=== PATIENT | female | born 1985 | race African-American/Black ===

== ENCOUNTER 2019-04-18 03:29 | Emergency (ER) | payer OTHER ==
[~2019-04-18] VITALS: Ht 167.6 cm; Wt 77.0 kg
[2019-04-18 04:10] VITALS: BP 111/85
== END 2019-04-18 05:17 | disposition home or self-care (01) ==
LOC: ER 03:29
DX: Z00.00 Encounter for general adult medical examination without abnormal findings (principal); J45.909 Unspecified asthma, uncomplicated; R07.9 Chest pain, unspecified
CPT/HCPCS: 99283

== ENCOUNTER 2019-09-30 05:42 | Emergency (ER) | payer MEDICAID, OTHER ==
[~2019-09-30] VITALS: Ht 167.6 cm; Wt 71.0 kg
[2019-09-30] MEDS ORDERED: KETOROLAC 30MG/ML VIAL IV STA (06:32)
[2019-09-30] MEDS ORDERED: VANCOMYCIN 1 G PREMIX 200 ML IV SCH (06:45)
[2019-09-30] MEDS ORDERED: SODIUM CHLORIDE 0.9% 1000ML BAG (SEPSIS BOLUS) IV ONE (06:45)
[2019-09-30] MEDS ORDERED: DEXAMETHASONE 10 MG/ML VIAL IV ONE (06:45)
[2019-09-30] MEDS ORDERED: CLINDAMYCIN 600 MG in DEXTROSE 5% WATER 50 ML IV ONE (06:45)
[2019-09-30 07:07] LABS: CLARITY URINE CLOUDY (CLEAR); COLOR URINE DARK YELLOW (YELLOW); KETONES URINE 3+ (NEGATIVE); LEUKOCYTE ESTERASE URINE TRACE (NEGATIVE); NITRITE URINE NEGATIVE (NEGATIVE); OCCULT BLOOD URINE 2+ (NEGATIVE); PH URINE 5.5 (4.5-8.0); PROTEIN URINE 3+ (NEGATIVE); SPECIFIC GRAVITY URINE 1.039 (1.005-1.030)
[2019-09-30 07:25] LABS: HEMOGLOBIN. 14.4 g/dL (12.0-16.0); MEAN CORPUSCULAR HEMOGLOBIN 32.3 pg (28.0-32.0); MEAN CORPUSCULAR VOLUME 96.3 fL (81.0-99.0); PLATELET 241 x1000/uL (130-400); RED BLOOD CELL COUNT 4.47 mill/uL (4.2-5.4); RED CELL DISTRIBUTION WIDTH 13.8 % (11.6-14.6)
[2019-09-30 07:34] LABS: CHLORIDE 102 mEq/L (98-107)
[2019-09-30 07:48] LABS: PLATELET ESTIMATE NORMAL
[2019-09-30 07:50] LABS: INR 1.1; PROTHROMBIN TIME 11.7 sec (9.6-11.0)
[2019-09-30 08:14] LABS: HCG SCREEN NEGATIVE; MONOTEST NEGATIVE (NEGATIVE)
[2019-09-30] MEDS ORDERED: DEXT 5%/0.45% NACL KCL 20MEQ/L 1,000 ML IV ONE (10:37)
[2019-09-30] MEDS ORDERED: IOHEXOL-300 100 ML BOTTLE ONE (11:17)
[2019-09-30 15:45] VITALS: BP 111/70
[2019-09-30] MEDS ORDERED: TETRACAINE/BENZOCAINE/BUTAMBEN 20 GM SPRAY MM ONE (15:45)
[2019-09-30] MEDS ORDERED: LIDOCAINE 1%/EPI 1:100,000 10 ML VIAL IJ ONE (15:45)
[2019-09-30] MEDS ORDERED: LIDOCAINE HCL/EPINEPHRINE 1%-EPI 1:100,000 20 ML VIAL ONE (15:46)
== END 2019-09-30 17:40 | disposition home or self-care (01) ==
LOC: ER 05:42
DX: A41.9 Sepsis, unspecified organism (principal); J36 Peritonsillar abscess; E86.0 Dehydration; H92.01 Otalgia, right ear
CPT/HCPCS: 36415; 70491; 71045; 80053; 81003; 81025; 83605; 84145; 84484; 84703; 85025; 85610; 86308; 87040; 87086; 87430; 93005; 99291; J1100; J1885; J3490; J7030; J7060; Q9967

== ENCOUNTER 2019-11-29 23:48 | Emergency (ER) | payer MEDICAID ==
[~2019-11-29] VITALS: Ht 167.6 cm; Wt 75.0 kg
[2019-11-30 02:07] LABS: BASOPHILS % 1.3 % (0.0-2.0); EOSINOPHILS % 3.5 % (0.0-5.0); HEMATOCRIT. 38.9 % (36.0-48.0); LYMPHOCYTES % 45.6 % (20.0-50.0); MEAN CORPUSCULAR HEMOGLOBIN 33.3 pg (28.0-32.0); MEAN CORPUSCULAR VOLUME 99.2 fL (81.0-99.0); MEAN PLATELET VOLUME 8.8 fl (7.4-10.4); MONOCYTES % 9.6 % (2.0-8.0); PLATELET 169 x1000/uL (130-400); RED BLOOD CELL COUNT 3.92 mill/uL (4.2-5.4); RED CELL DISTRIBUTION WIDTH 14.5 % (11.6-14.6)
[2019-11-30 02:14] LABS: CHLORIDE 109 mEq/L (98-107)
[2019-11-30 04:20] VITALS: BP 104/68
== END 2019-11-30 04:52 | disposition home or self-care (01) ==
LOC: ER 23:48
DX: R07.89 Other chest pain (principal)
CPT/HCPCS: 36415; 71045; 80053; 83880; 84484; 85025; 85379; 93005; 99285